=== PATIENT | female | born 1995 | race Caucasian/White ===

== ENCOUNTER 2020-06-03 23:23 | Emergency (ER) | payer OTHER ==
[~2020-06-03] VITALS: Ht 157.5 cm; Wt 142.9 kg
[2020-06-04 00:16] LABS: HEMATOCRIT 38.3 % (37.0-47.0); HEMOGLOBIN 12.6 gm/dL (12.0-15.0); MCH 28.7 pg (26.0-34.0); MCHC 32.8 g/dL (28.0-37.0); MCV 87.3 fL (80.0-100.0); MPV 7.6 fl. (7.2-11.1); NUCLEATED RBCS 0 /100WBC; PLATELET COUNT* 338 thou/uL (150-400); RBC 4.38 mil/uL (4.20-5.00); RDW-CV 13.9 % (10.5-14.5); WBC 20.2 thou/uL (4.0-11.0)
[2020-06-04 00:21] LABS: CALCIUM 9.2 mg/dL (8.5-10.1); CREATININE 2.5 mg/dL (0.6-1.3); POTASSIUM 3.3 mmol/L (3.5-5.1)
[2020-06-04 00:26] LABS: ALBUMIN 3.2 g/dL (3.4-5.0); TOTAL BILIRUBIN 0.6 mg/dL (<0.1-1.0); TOTAL PROTEIN 8.2 g/dL (6.4-8.2)
[2020-06-04 00:47] LABS: ABSOLUTE LYMPHOCYTES 0.4 thou/uL (0.8-5.3); ABSOLUTE MONOCYTES 1.2 thou/uL (0.0-1.2); ABSOLUTE NEUTROPHILS 18.6 thou/uL (1.6-8.1); PLATELET ESTIMATE ADEQUATE
[2020-06-04 01:24] VITALS: BP 125/79
--- NOTE | 2020-06-05 09:41 | EKG ---
[place] [address] ELECTROCARDIOGRAM REPORT Name: KIANNA BATRES Room: [facility]#: [id number] Admission: 06/03/20 Attend Phys: Discharge: 06/04/20 Date of : 89 Date of Service: 06/03/202350 Report #: [id number] THIS REPORT FOR: //name// [facility] ED Test Date: 2020-06-03 Test Time: 23:51:29 Pat Name: KIANNA JANG Department: Room: Gender: F [employer]: DT : 1995 Requested By: Dianne Sin Order Number: [id number] MD: Edgardo Vickers Measurements Intervals [place] Rate: 118 P: 23 PA: 129 QRS: 38 QRSD: 82 T: 31 QT: 310 QTc: 435 Interpretive Statements Sinus tachycardia Probable left atrial enlargement No previous ECG available for comparison Electronically Signed On 06-05-2020 9:41:19 CDT by Edgardo Vickers [email or web address] <ELECTRONICALLY SIGNED> By: Edgardo Vickers MD, [facility] 06/05/20 0941 50 50 Edgardo Vickers MD, FAC /EPI
== END 2020-06-04 01:24 | disposition short-term general hospital (02) ==
LOC: M.ERS 23:23
PROVIDERS: Emergency Medicine
DX: K12.2 Cellulitis and abscess of mouth (principal); Z90.89 Acquired absence of other organs; Z20.822 Contact with and (suspected) exposure to COVID-19